=== PATIENT | female | born 1955 ===

== ENCOUNTER 2023-11-21 13:00 | Outpatient (AMB) | payer MEDICARE, SELFPAY ==
--- NOTE | 2023-11-21 12:57 | MHC.OFFVIS ---
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 Patient reports that she has been suffering with this pain for greater than 30 years. She endorses low midline lumbar back pain with radiation down the left lateral thigh just below the knee. Notable for burning pins needles and aching pain down the lateral thigh. Pain today is rated a 6/10, constant worse in the nighttime. Has recently been taking prednisone with some improvement of her pain, she tried Flexeril that did not help her pain. She takes Tylenol with minimal improvement. Completed physical therapy, chiropractor and attempts at injections without improvement of her pain. She reports in 2011 she received transforaminal epidural steroid injection at [facility] that provided her 1 month of pain relief. She repeated this injection 1 month ago and did not find any benefit. Pain is worse with walking and moving She was evaluated by a neurosurgeon many years ago, no surgery offered at that time She denies red flag symptoms including new loss of bowel, bladder or saddle anesthesia. Most recent MRI was completed in 2015, results were reviewed with the patient today. In terms of muscle damage condition is described as aching, burning, pins, needles, stabbing and numb. Pain is negatively impacting patient's sleep, ability to perform activities of daily living and enjoyment of life. [facility] [place] Medical History (Updated 11/21/23 @ 13:30 by Kamila Oswald, KILN TESTER, ENFORCEMENT MANAGER) Hyperlipidemia Sciatica Radiculopathy of lumbosacral region Major depressive disorder in partial remission Trochanteric bursitis of both hips Spinal stenosis Surgical History (Updated 11/21/23 @ 13:23 by Eleanor Cote) History of carpal tunnel release of both wrists S/P laparoscopic appendectomy S/P cholecystectomy Social History (Updated 11/21/23 @ 13:27 by Eleanor Cote) Alcohol intake: current Alcohol intake frequency: holidays/special occasions only Patient Tobacco Use Status: Former Tobacco user Quit Date: 2012 Substance Use Type: Marijuana Substance Use Frequency: Occasionally Review of Systems Const All systems reviewed & are unremarkable except as noted in HPI and below Physical Exam General: awake, alert, oriented. Answers questions appropriately. Fully engaged in examination. Skin: warm, dry, intact HEENT: Normocephalic. Hearing intact. Cardiac: External chest normal in appearance. Respiratory: No cough, audible wheezing or stridor. Abdomen: without gross distension. MS: No obvious swelling or deformities. Able to stand on bilateral tiptoes and bilateral heels.? Able to transition from sit to stand unassisted. Ambulates with bilaterally normal heel strike and toe off Full lumbar range of motion Bilateral lower extremity strength 5/5 Negative clonus, negative footdrop SLR with dorsiflexion positive on the left Tender to palpation lumbar midline vertebrae and paraspinal muscles 2+ DTR Neurological: Oriented to person, place, time and situation. Thought process intact. No gait abnormalities appreciated. Psychiatric: Appropriate mood and affect. Good judgment and insight. Results Reviewed Results Reviewed: 03/2016 MRI LS without Impression: Multilevel bony and discogenic degenerative changes as described. Moderate central spinal canal stenosis at L4-5. Multilevel foraminal stenosis as described. Perineural cysts as described Assessment & Plan Assessment & Plan (1) Lumbar radiculopathy: Code(s): M54.16 - Radiculopathy, lumbar region (2) Spinal stenosis: Code(s): M48.00 - Spinal stenosis, site unspecified Plan Maddie is a very pleasant 68-year-old female who presented to the office today for evaluation and management of her chronic lower back pain. Last MRI 2015, MRI lumbar spine without contrast ordered today to evaluate for worsening stenosis or nerve impingement given patient's complaint of numbness, burning and tingling of the left leg. Patient requesting MRI at [facility] due to proximity to her house. Gabapentin 100 mg p.o. b.i.d., patient advised on cautions for use Patient has exhausted conservative therapy including PT, chiropractor, steroid injections, Tylenol, muscle relaxers and prednisone without improvement of her symptoms. Discussed diagnosis and options for treatment including diagnostic interventional testing, epidural steroid injections, peripheral nerve stimulation with Sprint, RFA and more permanent neuromodulation. All questions and concerns have been answered and patient agrees with the plan. Follow up after MRI and sooner if needed. Orders: Orders MR lumbar spine wo con Today M48.00 - Spinal stenosis, site unspecified, M54.16 - Radiculopathy, lumbar region Medications: New gabapentin 100 mg PO BID 60 caps 1RF Coding Level of Care Code New Pt Level 4 (94524) Diagnoses Lumbar radiculopathy M54.16 Spinal stenosis M48.00
== END 2023-11-21 13:33 | disposition home or self-care (01) ==
PROVIDERS: PCP Nurse Practitioner Primary Care; Visit Provider Registered Nurse Emergency
DX: M54.16 Radiculopathy, lumbar region (principal); M48.00 Spinal stenosis, site unspecified
CPT/HCPCS: 99204

== ENCOUNTER → 2023-11-21 13:00 | Outpatient (BNVA) | payer MEDICARE, SELFPAY | PROVIDERS: PCP Nurse Practitioner Primary Care; Visit Provider Registered Nurse Emergency | DX: M54.16 Radiculopathy, lumbar region (principal); M48.061 Spinal stenosis, lumbar region without neurogenic claudication | CPT/HCPCS: 99202 ==